=== PATIENT | female | born 1985 | race Caucasian/White ===

== ENCOUNTER 2017-07-21 16:45 | Emergency (ER) | payer OTHER ==
[~2017-07-21] VITALS: Ht 167.6 cm; Wt 71.4 kg
[2017-07-21 17:03] VITALS: BP 97/58; PULSE 80; RESP 16; O2SAT 99
--- NOTE | 2017-07-21 17:30 | ED.REPORT ---
HPI-Extremity Problem Upper Date of Service Jul 21, 2017 ED Provider: Omar Ayala MD Abraham is an otherwise healthy 31-year-old female presenting with chief complaint laceration. Patient states she cut the end of her left pinky on a soup can. Denies numbness/tingling. Denies comorbidities such as diabetes, HIV, immunosuppression. She is unsure of her tetanus status. Nursing Notes Stated Complaint: LACERATION ON RIGHT PINKY FINGER Chief Complaint: Laceration Nursing Notes Reviewed: Yes Allergies: Coded Allergies: No Known Allergies (Unverified , 07/21/17) General Time Seen by MD: 17:14 Chief Complaint Wrist injury right Past Medical History Past Medical History Denies Review of Systems Review of Systems Note: Negative unless stated otherwise in history of present illness Physical Exam General: Well appearing, well developed, well nourished, no acute distress. right fifth finger: 2 cm flap laceration on the medial aspect of the distal phalanx, involving the lateral nail fold. Appears poorly perfused with only a 1 mm segment attachment at the distal aspect. No indication of foreign bodies, bone or ligament involvement. Remainder of the digit is well-perfused. Head: Atraumatic, normocephalic. Eyes: No scleral icterus or injection. No discharge. Vision grossly intact. ENT: Voice clear, hearing grossly intact. Respiratory: No respiratory distress, no increased work of breathing. Speaks in complete sentences. Skin: Warm and dry. Neurological: Grossly nonfocal. Psychological: alert and oriented. Speech appropriate, linear and logical. Behavior appropriate. Initial Vital Signs Vital Signs (First) Date Time Temp Pulse Resp B/P Pulse Ox O2 Delivery O2 Flow Rate FiO2 07/21/17 17:03 36.9 80 16 97/58 99 Room Air Normal Procedures Laceration Management Laceration Management: Right fifth finger laceration, distal phalanx Procedure Performed by: Allied health pract Consent / Setup / Site Prep: Consent from patient, Hand hygiene observed, Stand sterile technique Wound Length: 2 cm Local Anesthesia: Lidocaine 1%, 5cc, 27g needle Digital Block: Yes Digit Involved: Little finger right Wound Preparation: Shurclens, Normal saline Debridement: None Irrigation: 150 cc Foreign Body Explore / Removal: Explored for foreign body Repair Skin: Nylon (5-0) # Sutures - Skin: 3 Closure Layers: 1 Suture Technique: Simple Post-Procedure / Complications: Antibiotic oint applied, Dressing applied, No complications, Condition improved, Tolerated procedure well, Patient stable Re-Eval/Medical Decision Med Decision/Clinical Course Otherwise healthy 31-year-old female Presents with a chief complaint of a laceration. Patient reports cutting her left fifth finger on a tuna can. Denies numbness/tingling. She is unsure of her tetanus status. Denies comorbidities. Physical examination reveals 2 similar flap laceration on the distal phalanx of the right fifth digit. The flap is poorly perfused, the remaining digit appears well perfused and neurovascularly intact. Vitals are normal. Laceration was closed per above without complication. We discussed the possibility that the flap may not survive but will provide a good biologic dressing. Advised regarding wound care. Advised regarding primary care follow-up , provided emergency return precautions. Patient verbalized understanding of, and consent to, the plan. Discharge & Departure Impression: Primary Impression: Laceration Disposition: Home Discharge Condition All VS Reviewed: Yes Condition: Stable Patient Instructions: Finger Laceration (ED) Additional Instructions: Evaluation in the emergency department for a laceration. This appears to be a clean wound, with no damage to the joint capsule or tendons. I see no indication for antibiotics at this time. We have updated your tetanus shot. We have cleaned, sutured and dressed the wound with antibiotic ointment and gauze. Please leave this dressing on and dry for the next 24 hours. After that you can remove the dressing, clean with soap and water and then reapply antibiotic ointment and gauze or Band-Aid. Please do not submerge the wound as in washing dishes, swimming or soaking in a tub until you have the sutures removed. The pain is best treated with 400 mg of ibuprofen (Advil, Motrin) every 6 hours , or 1000 mg of acetaminophen (Tylenol) every 6 hours. These drugs can be taken at the same time for more severe pain. Be vigilant for signs of infection. While a small amount of redness, tenderness and clear or pink drainage is normal, any increasing pain, redness, swelling or the appearance of pus suggests infection. More severe infection as suggested by symptoms such as fever, chills, feeling ill, racing heart. Please return to emergency Department if you notice signs of infection. Follow-up with your primary care provider or return to the emergency department in 7-10 days for suture removal. Referrals: [facility] EDSupervising Provider for APC: Omar Ayala MD Attending Statement Attending attestation: I saw this patient in conjunction with Aram Gordon PA-C. I agree with the workup, evaluation, treatment and disposition. Omar Ayala MD copies to: [facility] Omar Ayala MD Jul 21, 2017 17:30 Aram Gordon PA-C Jul 21, 2017 19:07
[2017-07-21] MEDS ORDERED: TdaP Vaccine 0.5 mL Inj IM ONE (19:10)
[2017-07-21 19:46] VITALS: BP 106/65; PULSE 83; O2SAT 97
== END 2017-07-21 19:46 | disposition home or self-care (01) ==
LOC: SED 16:45
DX: S61.216A Laceration without foreign body of right little finger without damage to nail, initial encounter (principal); W26.8XXA Contact with other sharp object(s), not elsewhere classified, initial encounter; Y93.9 Activity, unspecified; Y92.9 Unspecified place or not applicable; Y99.8 Other external cause status; Z23 Encounter for immunization